=== PATIENT | female | born 1995 | race Caucasian/White ===

== ENCOUNTER 2023-07-12 20:17 | Outpatient (REF) | payer OTHER, SELFPAY ==
[2023-07-18 13:11] LABS: Age Gdln ACOG Testing Note (.); IGP, rfx Aptima HPV ASCU Note (.)
== END 2023-07-12 20:18 | disposition home or self-care (01) ==
LOC: LAB 20:17
PROVIDERS: Visit Provider Obstetrics & Gynecology
DX: Z01.419 Encounter for gynecological examination (general) (routine) without abnormal findings (principal)
CPT/HCPCS: G0145

== ENCOUNTER 2024-07-22 21:39 | Outpatient (REF) | payer MEDICAID, SELFPAY ==
--- OUTSIDE RECORDS SUMMARY | 2024-07-22 21:43 | XMS_ITS | CCD ---
Author Organization [facility] Care Team Providers Care Office Machines Wirer Name Role Phone ODILIA, DR LUCY Padilla Consulting Unavailable MISC, DR CASANOVA Primary Care Unavailable CHAVA ., DR METCALF Attending Unavailable CHAVA ., DR METCALF Admitting Unavailable CHAVA ., DR METCALF Consulting Unavailable MISC, DR CASANOVA Primary Care Unavailable CHAVA ., DR METCALF Admitting Unavailable CHAVA ., DR METCALF Consulting Unavailable CHAVA ., DR METCALF Attending Unavailable DIXON LARSEN Attending Unavailable DAVID MURRAY Primary Care Unavailable LEANNA LOGAN Attending Unavailable NO, PHYSICIAN Primary Care Unavailable NINOSKA DONALDSON Attending Unavailab le Allergies Allergy Classification Reported Allergen(s) Allergy Type Date of Onset Reaction(s) Facility (2 sources) Cephalexin; Translations: [CEPHALEXIN] Drug Allergy 04-07-2023 [facility] Repository Problems Active Problems Problem Classification Problem Date Documented Date Episodic/Chronic Headache; including migraine (2 sources) Headache; including migraine; Translations: [Headache, unspecified] Onset: 01-22-2024 Immunizations and screening for infectious disease (1 source) Encounter for screening for human papillomavirus (HPV); Translations: [ENC SCREENING HUMAN PAPILLOMAVIRUS] Onset: 07-12-2022 Episodic Other female genital disorders (4 sources) Unspecified condition associated with female genital organs and menstrual cycle; Translations: [UNS COND W/FE GENIT ORGN MENST CYCL] Onset: 07-26-2022 Episodic Other injuries and conditions due to external causes (2 sources) Unspecified injury of head, initial encounter; Translations: [Unspecified injury of head, initial encounter] Onset: 01-22-2024 Episodic Other screening for suspected conditions (not mental disorders or infectious disease) (4 sources) Encounter for screening for malignant neoplasm of cervix; Translations: [ENC SCREENING MALIG NEOPLASM CERV] Onset: 07-11-2022 Episodic Ovarian cyst (1 source) Other ovarian cyst, right side; Translations: [OTHER OVARIAN CYST RIGHT SIDE] Onset: 07-31-2022 Episodic Past or Other Problems Problem Classification Problem Date Documented Da te Episodic/Chronic Pleurisy; pneumothorax; pulmonary collapse (2 sources) Pleurisy; Translations: [Pleurisy] Onset: 04-07-2023 Episodic Results Test Name Value Interpretation Reference Range Facil ity BASIC METABOLIC PANELon 01-10 Anion gap [Moles/Vol] 12 mmol/L Normal 10-20 [facility] Comment on above: Order Comment: [facility] has implemented the eGFR calculation approach that does not have a coefficient for race that conforms to the NKF-ASN Task Force Recommendations. Performed By: #### [id number] #### [facility] [address] [place], [place] [address] Magdalena Yan M.D. [id number] Calcium [Mass/Vol] 8.3 mg/dL Low 8.4-10.2 [facility] Comment on above: Order Comment: [facility] has implemented the eGFR calculation approach that does not have a coefficient for race that conforms to the NKF-ASN Task Force Recommendations. Performed By: #### [id number] #### [facility] [address] [place], [place] [address] Magdalena Yan M.D. [id number] Chloride [Moles/Vol] 108 mmol/L Normal 98-108 [facility] Comment on above: Order Comment: [facility] has implemented the eGFR calculation approach that does not have a coefficient for race that conforms to the NKF-ASN Task Force Recommendations. Performed By: #### 4 [id number] #### [facility] [address] [place], [place] [address] Magdalena Yan M.D. [id number] Creatinine [Mass/Vol] 0.68 mg/dL Normal 0.40-1.10 [facility] Comment on above: Order Comment: [facility] has implemented the eGFR calculation approach that does not have a coefficient for race that conforms to the NKF-ASN Task Force Recommendations. Performed By: #### 4 [id number] #### [facility] [address] [place], [place] [address] Magdalena Yan M.D. [id number] EGFR 120 mL/min/1.73 m2 Normal >=60 [facility] Comment on above: Order Comment: [facility] has implemented the eGFR calculation approach that does not have a coefficient for race that conforms to the NKF-ASN Task Force Recommendations. Result Comment: Fauzia mated GFR was calculated using the 2020 CKD-EPI creatinine equation. Performed By: #### 4 [id number] #### [facility] [address] [place], [place] [address] Magdalena Yan M.D. [id number] Glucose [Mass/Vol] 86 mg/dL Normal 65-99 [facility] Comment on above: Order Comment: [facility] has implemented the eGFR calculation approach that does not have a coefficient for race that conforms to the NKF-ASN Task Force Recommendations. Performed By: #### 4 [id number] #### [facility] [address] [place], [place] [address] Magdalena Yan M.D. [id number] HCO3 (Bld) [Moles/Vol] 24 mmol/L Normal 21-32 [facility] Comment on above: Order Comment: [facility] has implemented the eGFR calculation approach that does not have a coefficient for race that conforms to the NKF-ASN Task Force Recommendations. Performed By: #### 4 [id number] #### [facility] [address] [place], [place] [address] Magdalena Yan M.D. [id number] Potassium [Moles/Vol] 3.8 mmol/L Normal 3.5-5.1 [facility] Comment on above: Order Comment: [facility] has implemented the eGFR calculation approach that does not have a coefficient for race that conforms to the NKF-ASN Task Force Recommendations. Performed By: #### 4 [id number] #### [facility] [address] [place], [place] [address] Magdalena Yan M.D. [id number] Sodium [Moles/Vol] 140 mmol/L Normal 135-145 [facility] Comment on above: Order Comment: [facility] has implemented the eGFR calculation approach that does not have a coefficient for race that conforms to the NKF-ASN Task Force Recommendations. Performed By: #### 4 [id number] #### [facility] [address] [place], [place] [address] Magdalena Yan M.D. [id number] Urea nitrogen [Mass/Vol] 7 mg/dL Low 8-25 [facility] Comment on above: Order Comment: [facility] has implemented the eGFR calculation approach that does not have a coefficient for race that conforms to the NKF-ASN Task Force Recommendations. Performed By: #### 4 [id number] #### [facility] [address] [place], [place] [address] Magdalena Yan M.D. [id number] Urea nitrogen/Creatinine [Mass ratio] 10.3 mg/mg Normal 10.0-20.0 [facility] Comment on above: Order Comment: [facility] has implemented the eGFR calculation approach that does not have a coefficient for race that conforms to the NKF-ASN Task Force Recommendations. Performed By: #### 4 [id number] #### [facility] [address] [place], [place] [address] Magdalena Yan M.D. [id number] CBC WITH AUTO DIFFERENTIALon 01-22-2024 AUTO NRBC 0.0 % Normal [facility] Comment on above: Performed By: #### L [id number] #### [facility] [address] [place], [place] [address] Magdalena Yan M.D. [id number] AUTO NRBC ABS COUNT 0.00 K/mcL Normal 0.00-0.00 [facility] Comment on above: Performed By: #### L [id number] #### [facility] [address] [place], [place] [address] Magdalena Yan M.D. [id number] BASOPHILS ABSOLUTE COUNT 0.01 K/mcL Normal 0.00-0.30 [facility] Comment on above: Performed By: #### L [id number] #### [facility] [address] [place], [place] [address] Magdalena Yan M.D. [id number] Basophils/100 WBC (Bld) 0.2 % Normal [facility] Comment on above: Performed By: #### L [id number] #### [facility] [address] [place] [address] Magdalena Yan M.D. [id number] Eosinophils (Bld) [#/Vol] 0.18 10*3/uL Normal 0.00-0.50 [facility] Comment on above: Performed By: #### L [id number] #### [facility] [address] [place] [address] Magdalena Yan M.D. [id number] Eosinophils/100 WBC (Bld) 3.4 % Normal [facility] Comment on above: Performed By: #### L [id number] #### [facility] [address] [place] [address] Magdalena Yan M.D. [id number] Erythrocyte distribution width (RBC) [Ratio] 12.3 % Normal 11.6-14.8 [facility] Comment on above: Performed By: #### L [id number] #### [facility] [address] [place] [address] Magdalena Yan M.D. [id number] Hematocrit (Bld) [Volume fraction] 34.8 % Low 36.0-46.0 [facility] Comment on above: Performed By: #### L [id number] #### [facility] [address] [place] [address] Magdalena Yan M.D. [id number] Hemoglobin (Bld) [Mass/Vol] 11.7 g/dL Low 12.0-16.0 [facility] Comment on above: Performed By: #### L [id number] #### [facility] [address] [place] [address] Magdalena Yan M.D. [id number] IG ABSOLUTE 0.01 K/mcL Normal 0.00-0.30 [facility] Comment on above: Performed By: #### L [id number] #### [facility] [address] [place] [address] Magdalena Yan M.D. [id number] IG PERCENT 0.20 % Normal [facility] Comment on above: Result Comment: The IG parameter is the percentage of metamyelocytes, myelocytes and promyelocytes. An immature granulocyte count (IG) of 1% or more suggests the possibility of infection, an IG count of 3% is very likely related to an infection. Performed By: #### L [id number] #### [facility] [address] [place] [address] Magdalena Yan M.D. [id number] Lymphocytes (Bld) [#/Vol] 2.30 10*3/uL Normal 0.90-4.00 [facility] Comment on above: Performed By: #### L [id number] #### [facility] [address] [place] [address] Magdalena Yan M.D. [id number] Lymphocytes/100 WBC (Bld) 43.6 % Normal [facility] Comment on above: Performed By: #### L [id number] #### [facility] [address] [place] [address] Magdalena Yan M.D. [id number] MCH (RBC) [Entitic mass] 33.5 pg Normal 26.0-34.0 [facility] Comment on above: Performed By: #### L [id number] #### [facility] [address] [place] [address] Magdalena Yan M.D. [id number] MCV (RBC) [Entitic vol] 99.7 fL Normal 80.0-100.0 [facility] Comment on above: Performed By: #### L [id number] #### [facility] [address] [place] [address] Magdalena Yan M.D. [id number] MEAN CORPUSCULAR HEMOGLOBIN CONC 33.6 g/dL Normal 31.0-37.0 [facility] Comment on above: Performed By: #### L [id number] #### [facility] [address] [place] [address] Magdalena Yan M.D. [id number] Monocytes (Bld) [#/Vol] 0.39 10*3/uL Normal 0.30-0.90 [facility] Comment on above: Performed By: #### L [id number] #### [facility] [address] [place], [place] [address] Magdalena Yan M.D. [id number] Monocytes/100 WBC (Bld) 7.4 % Normal [facility] Comment on above: Performed By: #### L [id number] #### [facility] [address] [place], [place] [address] Magdalena Yan M.D. [id number] NEUTROPHILS ABSOLUTE COUNT 2.38 K/mcL Normal 1.70-7.00 [facility] Comment on above: Performed By: #### L [id number] #### [facility] [address] [place] [address] Magdalena Yan M.D. [id number] Neutrophils/100 WBC (Bld) 45.2 % Normal [facility] Comment on above: Performed By: #### L [id number] #### [facility] [address] [place] [address] Magdalena Yan M.D. [id number] Platelet mean volume (Bld) [Entitic vol] 9.3 fL Low 9.4-12.4 [facility] Comment on above: Performed By: #### L [id number] #### [facility] [address] [place], [place] [address] Magdalena Yan M.D. [id number] Platelets (Bld) [#/Vol] 226 10*3/uL Normal 150-400 [facility] Comment on above: Performed By: #### L [id number] #### [facility] [address] [place] [address] Magdalena Yan M.D. [id number] RBC (Bld) [#/Vol] 3.49 10*6/uL Low 4.00-5.20 [facility] Comment on above: Performed By: #### L [id number] #### [facility] [address] [place], [place] [address] Magdalena Yan M.D. [id number] WBC (Bld) [#/Vol] 5.27 10*3/uL Normal 4.50-11.00 [facility] Comment on above: Performed By: #### L [id number] #### [facility] [address] [place] [address] Magdalena Yan M.D. [id number] CT HEAD OR BRAIN WITHOUT CON TRASTon 01-22-2024 CT HEAD OR BRAIN WITHOUT CONTRAST EXAMINATION: CT HEAD OR BRAIN WITHOUT CONTRAST HISTORY: ORDERING SYSTEM PROVIDED HISTORY: Patient was hit with a softball in the right parietal region yesterday evening, reports worsening headache, positional dizziness, photosensitivity, TECHNOLOGIST PROVIDED HISTORY: Illness/Other Reason for exam: Patient was hit with a softball in the right parietal region yesterday evening, reports worsening headache, positional dizziness, photosensitivity Encounter Type: Initial Additional signs and symptoms: Patient was hit with a softball in the right parietal region yesterday evening, reports worsening headache, positional dizziness, photosensitivity ORDERING SYSTEM PROVIDED DIAGNOSIS CODES: COMPARISON: None TECHNIQUE: CT examination of the head without IV contrast. Dose reduction techniques were achieved by using automated exposure control and/or adjustment of mA and/or kV according to patient size and/or use of iterative reconstruction technique. FINDINGS: No mass, acute intracranial hemorrhage or any abnormal extra-axial fluid collection is seen. There is no mass effect or shift of midline structures. Piper-white matter distinction is preserved. No infarct or hydrocephalus is evident. No skull fracture is seen. The imaged paranasal sinuses, mastoid air cells and middle ear cavities are clear. IMPRESSION: Negative for acute intracranial process. Workstation ID: [id number] Dictated by: IVOLETA RUBI on MonJan 22, 2024 11:07:42 AM EDT Transcribed by: VIOLETA RUBI on MonJan 22, 2024 11:07:42 AM EDT Finalized by: VIOLETA RUBI on MonJan 22, 2024 11:07:42 AM EDT Normal [facility] Comment on above: Order Comment: Injur y/Trauma or Illness?:Illness/Other How long have you had these symptoms (acute/chronic)?:Acute Reason for exam?:Patient was hit with a softball in the right parietal region yesterday evening, reports worsening headache, positional dizziness, photosensitivity Type of Exam?:Initial Additional signs and symptoms?:Patient was hit with a softball in the right parietal region yesterday evening, reports worsening headache, positional dizziness, photosensitivity ED Prov Noteon 01-22-2024 ED Prov Note [place] [phone] NAME: Mathieu Pike AGE: 28 y.o. PCP: Cat, Physician CSN: [id number] Chief Complaint: Dizziness and Headache CLINICAL IMPRESSION: 1. Closed head injury, initial encounter 2. Nonintractable headache, unspecified chronicity pattern, unspecified headache type EMERGENCY DEPARTMENT COURSE: Mathieu Pike is a 28 y.o. female with a pertinent PMHx of hysterectomy, who presents to [facility] for the evaluation of a headache after head injury sustained yesterday. Patient reports that she was playing softball yesterday and she was running to [employer]. She reports that the left center was throwing a softball, she was approximately 75 feet away from the person throwing a softball, when she was hit in the right parietal region of the head. She was not wearing a helmet. She states that she did not lose consciousness. She reports that it did not hurt her very badly when it first happened, but she states that as the evening went on, the headache progressively worsened. She states that she tried taking 600 mg of ibuprofen last night, which did not help her. She reports that she feels light sensitivity this morning. She states that she feels dizzy, with just certain positions. She states that when she bent over to pick up man her son's close off the floor and stood back up she felt dizzy as well as when she tried to get out of bed. She does not report consistent or persistent dizziness. She has not taken any medications yet today. She did not fall and hit the ground yesterday when this happened. She denies any neck or back pain. There is no numbness or tingling or weakness to arms or legs. No abdominal pain, nausea or vomiting. No chest pains or shortness of breath. She denies any visual disturbances. No nasal congestion, cough, fever or chills. She denies any leg pain or swelling. No other complaints or concerns. CBC with differential shows white blood cell count normal at 5.27, RBCs decreased at 3.49, hemoglobin of 11.7 and hematocrit of 34.8 BMP shows BUN of 7, calcium of 8.3, otherwise negative CT head of brain without contrast was performed and revealed Negative for acute intracranial process. she received 1 L normal saline bolus, Benadryl 25 mg IV, Reglan 10 mg IV as well as Toradol 15 mg IV for symptom management and reported significant improvement in her headache, even after just the administration of reglan and benadryl. I discussed patient's case with attending physician Dr. Donaldson, who agrees that at this time, patient appears to be stable and appropriate for discharge with outpatient follow-up to primary care for recheck and reevaluation. Patient does not have any evidence of intracranial abnormality. No evidence of intracranial bleeding, no focal neurodeficit. She reports improvement after administration of migraine cocktail. We recommend close outpatient follow-up to primary care for recheck and reevaluation in the next 1 to 2 days, or sooner if new, worsening concerning signs or symptoms arise. Tylenol and/or ibuprofen for residual headache. Strict return precautions to the emergency department which include, but are not limited to, any new, worsening concerning signs or symptoms which include severe headache, neck pain or stiffness, difficulty talking or walking, numbness or tingling weakness arms or legs, facial asymmetry, intractable nausea vomiting, abdominal pain, chest pain, difficulty breathing, etc. Drink lots of water, maintain good hydration and nutrition. Follow-up with [facility] for recheck and reevaluation in the next 1 to 2 days, or sooner if new, worse or concerning signs or symptoms arise. Patient is in agreement expresses understanding. Patient currently is no further questions or concerns. Patient be happily discharged home. Vital signs are hemodynamically stable. Blood pressure is 139/84. Afebrile 97.9. Heart rate of 80. Breathing even, unlabored respirations on room air 99%. Nontoxic in appearance. Patient presentation, physical exam findings, workup and course were reviewed with attending physician Dr. Donaldson. They were present for consultation and assistance throughout ED course. Medications Ordered/Given During ED Visit Medications sodium chloride (PF) (NS) flush 5 mL (has no administration in time range) And sodium chloride 0.9% (NS) (has no administration in time range) sodium chloride 0.9% (NS) bolus 1,000 mL (1,000 mL Intravenous New Bag 01/22/24 1101) ketorolac (TORADOL) injection 15 mg (has no administration in time range) metoclopramide (REGLAN) injection 10 mg (10 mg Intravenous Given 01/22/24 1101) diphenhydrAMINE (BENADRYL) injection 25 mg (25 mg Intravenous Given 01/22/241100) MEDICAL DECISION MAKING: Patient's case presentation, physical exam findings and diagnostic laboratory and imaging results were discus (more content not included)... Normal [facility] XR CHEST AP/PA AND LATon XR CHEST AP/PA AND LAT EXAMINATION: XR CHEST AP/PA AND LAT 04/07/2023 11:00 PM HISTORY: ORDERING SYSTEM PROVIDED HISTORY: Chest pain, TECHNOLOGIST PROVIDED HISTORY: Illness/Other Reason for Exam: Patient states I woke up this morning and it hurts to take a deep breath on my left side. It is also going around to my back. It hurts worse when I move a certain way. Cancer History: Unk Surgery, Radiation History: Unk Encounter Type: Initial Additional Signs and Symptoms: N/A ORDERING SYSTEM PROVIDED DIAGNOSIS CODES: COMPARISON: None. FINDINGS: Two views of the chest were obtained. Bilateral nipple piercings are noted. The cardiac silhouette is normal in size. The lungs are clear. There is no significant pneumothorax or pleural effusion. No acute osseous abnormality is seen. IMPRESSION: 1. No acute cardiopulmonary abnormality. [facility] Workstation ID: [id number] Dictated by: TAJ ALBRIGHT on Sat Apr 08, 2023 1:24:49 AM EDT Transcribed by: ELIEZER CURRY on Sat Apr 08, 2023 1:28:37 AM EDT Finalized by: TAJ ALBRIGHT on Sat Apr 08, 2023 1:56:43 AM EDT Normal [facility] Comment on above: Order Comment: Injur y/Trauma or Illness?:Illness/Other How long have you had these symptoms (acute/chronic)?:Acute Reason for exam?:Patient states I woke up this morning and it hurts to take a deep breath on my left side. It is also going around to my back. It hurts worse when I move a certain way. ?? History of cancer?:unk Surgeries, chemotherapy, or radiation?:unk Type of Exam?:Initial Additional signs and symptoms?:n/a US PELVIS AND TRANSVAGon US PELVIS AND TRANSVAG EXAMINATION: US PELVIS AND TRANSVAG HISTORY: Disorder of female genital organs COMPARISON: No relevant comparison available. FINDINGS: The uterus is surgically absent The right ovary measures 4.3 x 3.3 x 2.6 cm. Area of anechoic echogenicity measuring 2.4 x 1.8 x 1.6 cm, simple cyst. Normal color and Doppler flow The left ovary is normal in appearance measuring 3.6 x 2.6 x 2.3 cm. Normal color and Doppler flow. Normal follicles No ascites IMPRESSION: 2.4 cm right ovarian simple cyst Electronically authenticated by: LUCY HARTLEY Date: 2022-07-26 14:45 Normal [facility] PAP ACOG PANEL 2: 21 to 29on 07-18-2022 . . Normal [facility] Comment on above: Performed By: #### [id number] #### [facility] [address] [place] [address] Dr. Andrew Dow Age Gdln ACOG Testing 19- Normal [facility] Comment on above: Performed By: #### [id number] #### [facility] [address] [place] [address] Dr. Andrew Dow DIAGNOSIS: Comment Normal [facility] Comment on above: Result Comment: NEGA TIVE FOR INTRAEPITHELIAL LESION OR MALIGNANCY. PREDOMINANCE OF COCCOBACILLI CONSISTENT WITH SHIFT IN VAGINAL MADDY IS PRESENT. THIS SPECIMEN WAS RESCREENED PART OF OUR FAMILY RESOURCE MANAGEMENT SPECIALIST PROGRAM. Performed By: #### [id number] #### [facility] [address] [place] [address] Dr. Andrew Dow Methodology: Comment Normal [facility] Comment on above: Result Comment: This liquid based ThinPrep(R) pap test was screened with the use of an image guided system. Performed By: #### [id number] #### [facility] [address] [place] [address] Dr. Andrew Dow Note: Comment Normal [facility] Comment on above: Result Comment: The Pap smear is a screening test designed to aid in the detection of premalignant and malignant conditions of the uterine cervix. It is not a diagnostic procedure and should not be used as the sole means of detecting cervical cancer. Both false-positive and false-negative reports do occur. . Performed By: #### [id number] #### [facility] [address] [place] [address] [address] Andrew Dow Performed by: Comment Normal [facility] Comment on above: Result Comment: Dimitrios Garcia, Repair Tech (ASCP) Performed By: #### [id number] #### [facility] [address] [place] [address] [address] Andrew Dow QC reviewed by: Comment Normal [facility] Comment on above: Result Comment: Patricia Llamas, Repair Tech (ASCP) Performed By: #### [id number] #### [facility] [address] [place] [address] Dr. Andrew Dow Reflex Criteria: Comment Normal [facility] Comment on above: Result Comment: The HPV DNA reflex criteria were not met with this specimen result therefore, no HPV testing was performed. . Performed By: #### [id number] #### [facility] [address] [address] [address] Andrew Dow Specimen adequacy: Comment Normal [facility] Comment on above: Result Comment: Sati sfactory for evaluation. No endocervical component is identified. Performed By: #### [id number] #### [facility] [address] [place] [address] Dr. Andrew Dow Screenson 08-09-2021 Screens [id number] 0CD:[id number] Normal [facility] Coding Summary.on 07-06-2021 Coding Summary. CD:[id number] Gh 0bWw+PGhlYWQ+KZ1PLCUsH 52fkCStlU6SH0yVQS1IYSA HIDRWER8CZH7bnQI7TCeeL 2VybiAv PuzjkKNkPC56FYa1HRB1yU ppAUeluK7uwDHzW5g7AkHe YD56kK22NWcoNBQlJeG1Ot ZpbjsgbWFy K0nySqGkbIScFdx+PHRhYm xlIHdpZHRoPScxMDAlJyBz rThaEK8gCc3aHVKaJSWlnI xhcHNlOiBj c7lgXMEkNRxjBV1vjMfyV5 PgwXH9VIDgt2n1Jb89qQI+ EIPcARL8jLsiGXbty639Gp Sgb7yoXCA8 wBPyHMeqLNX0U41lz0G8KA QsILMqRQL5kJE8sB8juSer maabL3TjoSXdJxU7UPP6fM JwoA6uiMjb spuskO3mXtl+A93QGO1FGI AQDO0DGls5U5QwGbepsGL+ DV84RKMoRD93eDQmxTRqk4 uvaUx5AwCq EGWsGJE4wNmmBNdxx0SnTF FaP78mfIVxe0T4LEBwcOri tXHmUcQyvAQ5aK2gDWfjuv jcv9wmisdi Dlxur5wyjo85dP10N44gCA ntVQHdXCO3MXFvYKYmvWmk gy9alN5vLu2+KQmyu4ycq9 eraEx1PrGt ZFFauqWthOrbMNW5b0TmCr 20K2CbhYryo0SePzo0nu81 yTEhb8F6kEX2WGgoXGTsnA 8sEMcrVvV1 CACuRwQphJ14cOOgYRohNd 0ciWywwAxsEB3dTHLwsxvr QPAjlQ1kPFSjsPIdwLawRO 4wNTBpbjtm f344ZwMmHQN7NPVraYHjA6 PtuB9cHtBcBLKpECQcD7Kh eBDrEJuwD917XOfdSkV2SS YwscWnF9Cg CBMfrWwbWyK5r5N1Uf6Gp1 UrnhpaSWV4ZBolYTAlRnV1 YzPiYrE7R4XgRgf1DBZemS dvEG9wT4Eh AGLezwvhbgbbpXG2JVFhIK IvqP14rMJkLGsrRz8fp3R1 p651JEJiOEIlqF39Vj0odH ogMTBwdCBU nA9pzwdzj7lhjvvsArPwIN YpIJq5IBe6FSFbiMnvXgNb YMQ1IcA8LHW6tCRmbR6drM rhnvbriI2o Oyc+W28kdH8mEPF4VPZ9yp crNZKkvsItEZ02SI99Y4Cl PjwvdGFibGU+PGRpdiBzdH hmHW0kEoBa k6ifr8CiUMchF0ToRYDzPF zlXyg9REQhELE8vBT0gL1t IQXoBWxyy7H8qZH8O5Xaeq Jnun0op6eh LYJvNKbvI76xxPUgq6T9ZV NmmGU9NXQmhGeeHeLqoC05 Oyc+WTJoeAmjt2XhDmbjb9 wbi9dkqJf0 PeLdVHCpzzZbqKmhRHN5w0 RaPl96I92lGCgeCWMjWGRn UWIbXHRmuVohaz2paU9gJz 8+PGNvbCB3 kDC6yO7lIRLbFeK6XAjbS8 44NlGsoPHxBszed4tga7ow uGe7KgJiRXHzvrJecJsnWH X8j9IsWd87 G36bXUmfECQjMNHpJKElWK LveIlooj5joY3gTa3+PC9j z8jjfs68dJ94rRC+PHRkIH G1tNtrGYvs RYWycO6wACzmLlX1FPKgXm OuhN10wCDmNZrzFm9vcEmd bIntJF2wBLVaosdyo986Ss Osy5phENXa zRRrPJbmJMG0W43oj3X7MG HiFMVdNUN1yEX2wK2znCos bjogbGVmdDsgdmVydGljYW frIMtmX103 IHRvcDsnPlBhdGllbnQgTm PhUBl5V5NtYpq1JKOjyOda UN0yzINfQUnhBv9txCsfbE uqZF6nNMFw wvlze441AeOqv1scWCNxdH CdZMzbHMR0O30ut5X0RAWz KKIwCYZ7cVU8bX4zyLqpch ogbGVmdDsg jaTwkOabGLfwYJhrO342BG RvcDsnPkJpcnRoIERhdGU6 AV31FU53dZHqf1E9wKW8K5 BhZGRpbmct rtsfrKN5YDZqFFMvdX43Xt 5guPcwAu4zUELvYPS2FMVn jPCzD0NyaB3dIqNaNSAyWF GmJ6DtuJZq NByqG775GLqvWtC6VXYstu SrK6IzSDEajJhcDvN5n7V8 Qc2IV0R8IV72NT88bDXrd5 V5bXY0J9Ov NFBaligihayvsJM7QORpFC PpaZ39Rq8goKaySi4eJVJg DIL9CDFcxATuZ9ScpA1rXs AjMDAwMDAw A3EqfPMzYZybS772NVzpSh G1IADuciShD5UtDVGxnPua AsF7l4C0Nz9AXQy5NL70CX 73xENrm1S4 nIU3L5FxRACceqtmnhlkpY Z6QCIoRPNgeV88Hv8hcBcj Vv0kNVQsOMS1TTGhvXDxC1 TgcO1hGmOn XQPuLQXpN1QwaUJkIOvzH6 53SWfhLqJ9ZGCbvbXlB8Sp XMCgzXduJtW7t0H8Tl1QRM XxOY06DLZ9 mUS2HY68EB29X0IkVkqcpY FibGU+PHRhYmxlIHdpZHRo SZknBLErIxJuyOomKZ0fYo 9yZGVyLWNv sXazgFWsSqCmf4oxLVZwET njOD5ljUgcZ4DiiBJ6QZUj g5f9Tg76E23cS3NdaHB+PG ZlzKO9cJG9 iZ9uEbOdBzZ8ENvtR226Pa RpbRXjDqtjw7yro5uqtEe0 GzE5SZXydrYnrBmbVSG8f2 CkAw35Y70h IHdpZHRoPSIxNSUiIHZhbG twrq5npG2eQw5+PGNvbCB3 kOO4iO3uCsGaUoK5HNgmN8 49InRvcCIv Dmqpe9njo3gudGc1DvDhML JrcqJuwUjaZCH3i9YtQr96 U2MlyWycn3TvXwf0in07oQ Iml8S6hJU4 E1SwRKAveofmrWLemHxzBO 7zBXPofmsmIJBmtN6iEOSa F5c8YqUyKgG9VJdmX5Mxkr M0QLBbiZUg HTmtSKV8A20el2C5TJPeXM KyZBM9vSH5cQ0uyWqefctt bGVmdDsgdmVydGljYWwtYW guR029OKLw iKvcZNZgmU2bDNFkiKCsfO ujFO3nJNFwwggrPyGGIVsD OIeyQa9GLyBXScDUVA33NP 05fDHot7A4 fKT2D0DyDDRikqvdzxccrB G3LABhKRQktM60kOLsSSbk Ko2pf6B0t637QPMlGDPzqD 81Ko5mzBpc YADjwTGCmI1ugsjmd7zxrx yjHxJzMKNgFVl7UBz2VPYj sRerWzOpIXV4UgO1XWE9oE AqlV1wgOrg vzbavA1rAjv+MDMvMTMvMT i5JBhsnPP+WVQwRQI3lHem QXkjAUSwrI4qWYMuS2u3Eo FoIoM6PPcv S2XyPSRvaswoZk37jL7jHt McPuL6NPdbO0EnfrZ1GLJt zOBcZQugJEP9W53do7D8YX MwMDAwMDA7 gMD0tS0wrYlxvjnmmFVlsV ukktRslAavVNklQQqqC011 XHErfAfpMpI5YYspVFZsHS 85FC72uYVy l6I7zES1B3NrSWYklrthfl hyeBH5GLZzDAExyQ75yBXh GCzhBq5cn9U9d563MBLnMC IgyW97Ot8h yGyaIGZioSXFgS9qkeqjd8 kiaimwGnWvSKGbVVi0XCa7 BIHphWmiWhHdTNQ2MmN3XE N2tSVnsT7u jYanftcmoR3gHgp+RmVtYW mlAJ56VM86eXXgo9L3fBY9 O5NmLSRltaybcsjaaFL8WX PsQJFsnL99 mNQrWPshPs7cg7S9b501NV TcBBYehP31Im0nqBdkJWCq aCIHfG4febrpq2qlrehySc AwMDAwMDt0 RIc5OFHevZuzWjWnGJO0Ao N2IPS0lGJbnU3gvExsxdzs wH5hSqk+EORwLTWeh1Wxq6 LwQY61QR71 J2GaGccbmGBbhLI+PHRhYm xlIHdpZHRoPScxMDAlJyBz vKpoMJ4bOc6tDANuZQOrfW xhcHNlOiBj f5ylUZShSDixEC6zrAyhF5 KmkEN4LWSum0l4Xg60Z99d V2HlkUU+IGBxrWY6aBH2tA 1iBuQgJsK6 HBusN538LkDtpNSkIibvc1 rxa8bwcXn4ToXzWJNkbwSk zLwvJHA2n3EiFw91W55ePI dpZHRoPSIy KAYaHBPtfItuic1ilV8iFv 8+NSCbgNK2uKC4lK3tBkCx PrG2UBqfN949SzYpdBVdBc suP06bV4Ng dXA+IVDqUqv7UOMcyDitRB 5hrXXpNJmoWj2qANI4TcIi VwBqLUwlW8GuPLEpolzygc csgDX8LUHv YQArcA47Uo6qrKaxPm2yPG FpYPE8IXJfbKLyE1YnjO4e FfFzESRqDNWyP8KjaCUtXH itU162UKec IrY3XQTnheEwD6UkKERjiX egGaT9p5L8Ri3LgWwlqMHb CL3qAzYlODz4V5UcVvv5VM KunFgtWZ7r lKNaXCcwUh5rgPookNwmFY 7rDLBlrjnvo745GdXuy7ey JZKseBJfTPguSJC3C40ev1 G3TAXnVQGs NVU5oVF1eX4ymJxhnpkmqZ VmdDsgdmVydGljYWwtYWxp C107SMAdtWhbPiBPOiz0G6 RkNqw2GBKz pCvySS4qcFCnSOrlEh4wrF fzyFteAB8lJSVoyebky237 LvDsp7ibWQQciEGrJClaFB E4J94yv0D1 PMVuIBGdYFW8kOW9uB1goV lnbjogbGVmdDsgdmVydGlj BMdtNUqwR642QKKlfZjsBz 0LPcs7V3Yh Jov4QBTolRcoKB4edHNwSH qpKf9laYjtnSoxSA3cURTs npuup366ZpPam5gzETDtaH QgVGltZXM7 N06cu0A6XNZpCXJeLVP5bX Q8kY9igBoqljxktCEzvTch wvQnyGhdSCavEQdnN433YB RvcDsnPlBh eWVyOjwvdGQ+OA19nj41B3 RdWcllOen0KAYoWJL5cHO5 lT0qYHNfQPfzz1A4cJD7M8 IqkpWcyg4x b2xs (more content not included)... Normal [facility] C Urineon 06-24-2021 Bacteria identified Cx Nom (U) Microbiology PROCEDURE: Urine Culture [R1] SOURCE: U CleanCatch BODY SITE: COLLECTED DATE/TIME: 06/22/2021 10:08 EST RECEIVED DATE/TIME: 06/22/2021 17:40 EST START DATE/TIME: 06/22/2021 17:40 EST FREE TEXT SOURCE: MIMI HALL, Briseida LE CNP, Briseida Mcintosh FINAL REPORTS Final Report [] Verified Date/Time: 06/24/2021 08:51 EST >100,000 cfu/ml Klebsiella pneumoniae SUSCEPTIBILITY RESULTS LEGEND: S=Susceptible, N/R=Not Reported, Blank=Data not available, or drug not advisable or tested, I=Intermediate, ESBL=Extended spectrum beta-lactamase, R=Resistant, TFG=Thymidine-dependen t strain, SAKINA=Beta-lactamase positive, KRYSTINA=mcg/m;(mg/L), S*=Predicted susceptible interp, R*=Predicted resistant interp Klepne Antibiotic KRYSTINA Dilutn KRYSTINA Interp Amikacin <=16 S Ampicillin >16 R Ampicillin/ <=8/4 S Sulbactam Aztreonam <=4 S Cefazolin <=2 S Cefepime <=2 S Cefoxitin <=8 S Ceftazidime <=1 S Ceftazidime/ <=8 S Avibactam Ceftriaxone <=1 S Ciprofloxacin <=1 S Ertapenem <=0.5 S Gentamicin <=4 S Levofloxacin <=2 S Meropenem <=1 S Nitrofurantoin 64 I Piperacillin/ <=16 S Tazobactam Tetracycline <=4 S Tigecycline <=2 S Tobramycin <=4 S Trimethoprim/ <=2/38 S Sulfa Performing Locations R1: This test was performed at: [facility], [address] [place] [address], [phone] , [place], Normal [facility] Comment on above: Performed By: #### [id number] #### [facility] [address] [place] [id number] Family Medicine Office/Clini c Noteon 06-23-2021 Family Medicine Office/Clinic Note Chief Complaint Here for possible yeast infection or UTI. Having cottage cheese d/c and itch. Now having burning with urination. History of Present Illness Here today for vaginal complaints. Symptoms: thick and white discharge, vaginal itching. Duration: 3 days Abdominal/pelvic pain: No Nausea/Vomiting: No Urinary complaints: Yes, dysuria, throbbing pain after urination. Bowel complaints: No /STI concerns: No LMP: Patient had a hysterectomy in 07/2020. Ms. Pike notes trying OTC 1-day yeast infection treatment, but did not find improvement in her symptoms. She denies recently taking antibiotics and confirms that she still smokes cigarettes. Review of Systems PHQ Score Initial Depression Screen Score: 0 Review of Systems: See HPI. Constitutional: Denies fever or chills, anorexia. Gastrointestinal: Denies bloody or black bowel movements, change in bowel habits. See HPI. Genitourinary: See HPI. Physical Exam Vitals & Measurements T: 36.5 ?C(Tympanic) HR: 76(Peripheral) RR: 12 BP: 104/62 HT: 158.0 cm HT: 158 cm WT: 56.6 kg WT: 56.6 kg BMI: 22.67 General: Well developed, well nourished, female adult in no acute distress sitting upright on exam table. Head: Normocephalic/atraumat ic. Eyes: No conjunctival irritation, no icterus. Ears: Grossly normal hearing. Nose: No discharge. Mouth: MMM, talkative. Neck: Supple. Chest: No distress. Abdomen: Abdomen is soft and nontender. No CVA tenderness, bilaterally. Musculoskeletal: Steady gait. Skin: Skin is fairly tanned, warm and dry. Mental Status: Alert and cooperative. Pleasant, appreciative. Assessment/Plan 1. Acute cystitis without hematuria (N30.00: Acute cystitis without hematuria) Results of urine sample today in office reviewed with patient. Instructed patient to wipe from front to back, urinate after intercourse and avoid excessive soaking in bathtub. Encouraged cotton underwear. Complete entire duration of antibiotic as directed -Macrobid prescribed. Encouraged increase in oral fluids. Urine sample sent for culture. Reviewed signs and symptoms of pyelonephritis and when to seek emergency department evaluation. To notify office if new or worsening symptoms develop or no improvement is found. Patient verbalizes understanding and agrees with plan. 2. Vaginitis (N76.0: Acute vaginitis) Reported symptoms consistent with candidal vaginitis, Diflucan prescribed, may repeat in 1 week if no improvement noted. Did discuss with patient repeat treatment may be warranted given use of oral antibiotic. 3. Cigarette smoker (F17.210: Nicotine dependence, cigarettes, uncomplicated) Smoking cessation strongly encouraged. Cigarette smoking harms nearly every organ of the body, causes many diseases, and reduces the health of smokers in general. Quitting smoking lowers your risk for smoking-related diseases and can add years to your life. 2-967-NMZG-NOW or www.smokefree.gov provide access to helpful resources including free telephone support. If you decide prescription treatment may help you quit, please contact your provider. 4. BMI 22.0-22.9, adult (Z68.22: Body mass index [BMI] 22.0-22.9, adult) Continue to maintain a healthy weight. Documentation services were performed after patient or guardian consented to allow [facility] to record this visit. CAROL environmental protection specialist and provider reviewed before signing. CAROL: Evelyn Singh Entered into [facility] by: Opal Fall. Follow-up With When Contact Information David OLSON [address] [place] [address]- Additional Instructions: Keep routine follow-up appointments with PCP as scheduled. Briseida LE CNP Only if needed [address] [place], [place] [id number]- Additional Instructions: Patient Education Urinary Tract Infection, Adult, Howf-ik-Jxgt Problem List/Past Medical History Ongoing BMI 22.0-22.9, adult Cigarette smoker Rh negative Seasonal allergic rhinitis Historical Procedure/Surgical History Bilateral tubal ligation, delivery, Endometrial ablation, Partial hysterectomy. Medications Diflucan 150 mg Tab, 150 mg= 1 tab(s), Oral, Once, 1 refills Macrobid 100 mg Cap, 100 mg= 1 cap(s), Oral, BID Allergies cephalexin (Rash) Social History Alcohol - Denies Alcohol Use, 12/07/2012 Employment/School Employed, Work/School description: [employer] Activity level: Desk/Office. Highest education level: High school., 11/22/2019 Exercise - Does not exercise, 12/07/2012 Home/Environment Lives with Children, Spouse. Living situation: Home/Independent. Alcohol abuse in household: No. Substance abuse in household: No. Smoker in household: Yes. Injuries/Abuse/Neglect in household: No. Feels unsafe at home: No. Safe place to go: Yes. Agency(s)/Others notified: No. Family/Friends available for support: Yes. Concern for family members at home: No. Major illness in household: No. Financial torito (more content not included)... Normal [facility] Comment on above: Result Comment: Elec tronically Signed By: Briseida LE CNP\willie\Date and Time Signed: 06/23/21 07:26 EST Patient Educationon 06-22-19 Patient Education Obstetrics and Gynecology Urinary Tract Infection, Adult A urinary tract infection (UTI) is an infection of any part of the urinary tract. The urinary tract includes: ? The kidneys. ? The ureters. ? The bladder. ? The urethra. These organs make, store, and get rid of pee (urine) in the body. What are the causes? This is caused by germs (bacteria) in your genital area. These germs grow and cause swelling (inflammation) of your urinary tract. What increases the risk? You are more likely to develop this condition if: ? You have a small, thin tube (catheter) to drain pee. ? You cannot control when you pee or poop (incontinence). ? You are female, and: ? You use these methods to prevent : ? A medicine that kills sperm (spermicide). ? A device that blocks sperm (diaphragm). ? You have low levels of a female hormone (estrogen). ? You are . ? You have genes that add to your risk. ? You are sexually active. ? You take antibiotic medicines. ? You have trouble peeing because of: ? A prostate that is bigger than normal, if you are male. ? A blockage in the part of your body that drains pee from the bladder (urethra). ? A kidney stone. ? A nerve condition that affects your bladder (neurogenic bladder). ? Not getting enough to drink. ? Not peeing often enough. ? You have other conditions, such as: ? Diabetes. ? A weak disease-fighting system (immune system). ? Sickle cell disease. ? Gout. ? Injury of the spine. What are the signs or symptoms? Symptoms of this condition include: ? Needing to pee right away (urgently). ? Peeing often. ? Peeing small amounts often. ? Pain or burning when peeing. ? Blood in the pee. ? Pee that smells bad or not like normal. ? Trouble peeing. ? Pee that is cloudy. ? Fluid coming from the vagina, if you are female. ? Pain in the belly or lower back. Other symptoms include: ? Throwing up (vomiting). ? No urge to eat. ? Feeling mixed up (confused). ? Being tired and grouchy (irritable). ? A fever. ? Watery poop (diarrhea). How is this treated? This condition may be treated with: ? Antibiotic medicine. ? Other medicines. ? Drinking enough water. Follow these instructions at home: Medicines ? Take pwhn-twn-rujlstw and prescription medicines only as told by your doctor. ? If you were prescribed an antibiotic medicine, take it as told by your doctor. Do not stop taking it even if you start to feel better. General instructions ? Make sure you: ? Pee until your bladder is empty. ? Do not hold pee for a long time. ? Empty your bladder after sex. ? Wipe from front to back after pooping if you are a female. Use each tissue one time when you wipe. ? Drink enough fluid to keep your pee pale yellow. ? Keep all follow-up visits as told by your doctor. This is important. Contact a doctor if: ? You do not get better after 1?2 days. ? Your symptoms go away and then come back. Get help right away if: ? You have very bad back pain. ? You have very bad pain in your lower belly. ? You have a fever. ? You are sick to your stomach (nauseous). ? You are throwing up. Summary ? A urinary tract infection (UTI) is an infection of any part of the urinary tract. ? This condition is caused by germs in your genital area. ? There are many risk factors for a UTI. These include having a small, thin tube to drain pee and not being able to control when you pee or poop. ? Treatment includes antibiotic medicines for germs. ? Drink enough fluid to keep your pee pale yellow. This information is not intended to replace advice given to you by your health care provider. Make sure you discuss any questions you have with your health care provider. Document Released: 11/14/2008 Document Revised: 05/16/2019 Document Reviewed: 12/06/2018 [employer] Patient Education ? 2020 [employer] Normal [facility] Ambulatory Clinical Summaryo n 09-28-2020 Ambulatory Clinical Summary {[id number] Normal [facility] Family Medicine Office/Clini c Noteon 09-28-2020 Family Medicine Office/Clinic Note Chief Complaint C/o allergy issues-sneezing, itchy throat, itchy ears. Would like an allergy shot History of Present Illness Here today for severe allergies requesting a Kenalog injection. Allergies bad for a couple weeks. Kenalog worked last year Using Singulair currently. Itchy ears and throat, sneezing. Eyes irritated at work form the dust or when around someone mowing. Review of Systems ROS Constitutional: denies fever and chills ENT: sneezing Respiratory: no tightness in the lungs Physical Exam Vitals & Measurements T: 36.3 ?C (Tympanic) HR: 74(Peripheral) RR: 16 BP: 128/74 SpO2: 98% HT: 158.0 cm HT: 158 cm WT: 52.7 kg WT: 52.7 kg BMI: 21.11 General: Well hydrated, no apparent distress Head: Normocephalic atraumatic Eyes: EOMI, sclera clear Ears: Bilateral tympanic membranes pearly piper with good cone of light Nose: pale and swollen turbinates Mouth: Mucous membranes moist. Normal oropharynx, posterior pharynx without lesion or exudate. Tongue normal. Neck: No cervical lymphadenopathy Lungs: Lungs clear to auscultation Cardio: Regular rate and rhythm with no murmur Assessment/Plan 1. Seasonal allergic rhinitis (J30.2: Other seasonal allergic rhinitis) Condition: Evaluated Status: Worsening Cause/Complications: season change Plan: Treat with Kenalog 60mg IM. Expected course and recovery discussed. Observe condition, call the office if worsening or if new signs or symptoms appear. Ordered: Office Visit Level 3 Est [id number] Follow-up With When Contact Information David OLSON Only if needed [address] [place] [phone]- Additional Instructions: Patient Education Allergic Rhinitis, Adult Problem List/Past Medical History Ongoing BMI 21.0-21.9, adult Current smoker Rh negative Seasonal allergic rhinitis Historical Procedure/Surgical History Bilateral tubal ligation, delivery, Endometrial ablation, Partial hysterectomy. Medications montelukast 10 mg Tab, 10 mg= 1 tab(s), Oral, Daily, 2 refills Allergies cephalexin (Rash) Social History Alcohol - Denies Alcohol Use, 12/07/2012 Employment/School Employed, Work/School description: [employer] Activity level: Desk/Office. Highest education level: High school., 11/22/2019 Exercise - Does not exercise, 12/07/2012 Home/Environment Lives with Children, Spouse. Living situation: Home/Independent. Alcohol abuse in household: No. Substance abuse in household: No. Smoker in household: Yes. Injuries/Abuse/Neglect in household: No. Feels unsafe at home: No. Safe place to go: Yes. Agency(s)/Others notified: No. Family/Friends available for support: Yes. Concern for family members at home: No. Major illness in household: No. Financial concerns: No., 11/22/2019 Lives with Children, Spouse., 11/22/2019 Nutrition/Health Regular, 12/07/2012 Sexual Sexually active: Yes. Number of current partners 1., 12/07/2012 Substance Abuse - Denies Substance Abuse, 12/07/2012 Tobacco - High Risk, 12/07/2012 5-9 cigarettes (between 1/4 to 1/2 pack)/day in last 30 days Tobacco Use:. Current vaping or e-cigarette use Smokeless Tobacco Use:. Cigarettes, 1 per day. 8 year(s). Total pack years: 8. Started age 18.0 Years. Ready to change: Yes. Yes, 09/28/2020 Current, Cigarettes, 1 per day., 12/07/2012 Family History Family history is negative Normal [facility] Comment on above: Result Comment: Elec tronically Signed By: David OLSON\.br\Date and Time Signed: 09/28/20 09:33 EDT Patient Educationon 09-29-19 Patient Education Immunology Allergic Rhinitis, Adult Allergic rhinitis is an allergic reaction that affects the mucous membrane inside the nose. It causes sneezing, a runny or stuffy nose, and the feeling of mucus going down the back of the throat (postnasal drip). Allergic rhinitis can be mild to severe. There are two types of allergic rhinitis: ? Seasonal. This type is also called hay fever. It happens only during certain seasons. ? Perennial. This type can happen at any time of the year. What are the causes? This condition happens when the body's defense system (immune system) responds to certain harmless substances called allergens as though they were germs. Seasonal allergic rhinitis is triggered by pollen, which can come from grasses, trees, and weeds. Perennial allergic rhinitis may be caused by: ? House dust mites. ? Pet dander. ? Mold spores. What are the signs or symptoms? Symptoms of this condition include: ? Sneezing. ? Runny or stuffy nose (nasal congestion). ? Postnasal drip. ? Itchy nose. ? Tearing of the eyes. ? Trouble sleeping. ? Daytime sleepiness. How is this diagnosed? This condition may be diagnosed based on: ? Your medical history. ? A physical exam. ? Tests to check for related conditions, such as: ? Asthma. ? [place] eye. ? Ear infection. ? Upper respiratory infection. ? Tests to find out which allergens trigger your symptoms. These may include skin or blood tests. How is this treated? There is no cure for this condition, but treatment can help control symptoms. Treatment may include: ? Taking medicines that block allergy symptoms, such as antihistamines. Medicine may be given as a shot, nasal spray, or pill. ? Avoiding the allergen. ? Desensitization. This treatment involves getting ongoing shots until your body becomes less sensitive to the allergen. This treatment may be done if other treatments do not help. ? If taking medicine and avoiding the allergen does not work, new, stronger medicines may be prescribed. Follow these instructions at home: ? Find out what you are allergic to. Common allergens include smoke, dust, and pollen. ? Avoid the things you are allergic to. These are some things you can do to help avoid allergens: ? Replace carpet with wood, tile, or vinyl ruma. Carpet can trap dander and dust. ? Do not smoke. Do not allow smoking in your home. ? Change your heating and air conditioning filter at least once a month. ? During allergy season: ? Keep windows closed as much as possible. ? Plan outdoor activities when pollen counts are lowest. This is usually during the evening hours. ? When coming indoors, change clothing and shower before sitting on furniture or bedding. ? Take acyw-pon-sjlatfd and prescription medicines only as told by your health care provider. ? Keep all follow-up visits as told by your health care provider. This is important. Contact a health care provider if: ? You have a fever. ? You develop a persistent cough. ? You make whistling sounds when you breathe (you wheeze). ? Your symptoms interfere with your normal daily activities. Get help right away if: ? You have shortness of breath. Summary ? This condition can be managed by taking medicines as directed and avoiding allergens. ? Contact your health care provider if you develop a persistent cough or fever. ? During allergy season, keep windows closed as much as possible. This information is not intended to replace advice given to you by your health care provider. Make sure you discuss any questions you have with your health care provider. Document Released: 02/21/2002 Document Revised: 05/11/2018 Document Reviewed: 07/06/2017 [employer] Patient Education ? 2019 [employer]. [facility] Encounters Encounter Date Encounter Type Care Provider Facility Start: 01-22-2024 End: 01-22-2024 Emergency department patient visit PHYSICIAN ST[facility] Start: 07-12-2023 End: 07-12-2023 ambulatory DIXON LARSEN Not Available Start: 04-07-2023 End: 04-08-2023 Emergency department patient visit DAVID MURRAY [facility] Start: 07-26-2022 End: 07-27-[address] LUCY HARTLEY Facility:[facility] Start: 07-11-2022 End: 07-11-[address] DOCTOR DIAZ Facility:[facility] Payers Date Payer Category Payer Medicaid [id number] 2022 Private Health Insurance [id number] 1993 Unknown [id number] 2.16.84 [id number] 1993 Unknown [id number] 2.16.84 [id number] 1993 Unknown [id number] 2.16.84 [id number] 1993 Unknown [id number] 2.16. [id number] 1993 Unknown [id number] 2.16. [id number] 1959 Unknown [id number] Summary Purpose Family History No Family History Records FoundNo Family History Records FoundNo Family History Records FoundNo Family History Records Found Advance Directives No Advanced Directives Records FoundNo Advanced Directives Records FoundNo Advanced Directives Records FoundNo Advanced Directives Records Found Additional Source Comments INFORMATION SOURCE (unrecogn ized section and content) DATE CREATED AUTHOR 08/09/2021 [facility] DATE CREATED AUTHOR AUTHOR'S ORGANIZ ATION 07/31/2022 [facility] DATE CREATED AUTHOR AUTHOR'S ORGANIZ ATION 07/14/2023 [facility] EPIC DATE CREATED AUTHOR AUTHOR'S ORGANIZ ATION 02/23/2024 [facility] FOR RECORDS PERTAINING TO PATIENTS WHO ARE OR HAVE BEEN ENROLLED IN A CHEMICAL DEPENDENCY/SUBSTANCEABUSE PROGRAM, SOME INFORMATION MAY BE OMITTED. This clinical summary was aggregated from multiple sources. Caution should be exercised in using it in the provision of clinical care. This summary normalizes information from multiple sources, and as a consequence, information in this document may materially change the coding, format and clinical context of patient data. In addition, data may be omitted in some cases. CLINICAL DECISIONS SHOULD BE BASED ON THE PRIMARY CLINICAL RECORDS. [facility] provides no warranty or guarantee of the accuracy or completeness of information in this document.
== END 2024-07-22 21:40 | disposition home or self-care (01) ==
LOC: LAB 21:39
PROVIDERS: Visit Provider Obstetrics & Gynecology
DX: Z01.419 Encounter for gynecological examination (general) (routine) without abnormal findings (principal)
CPT/HCPCS: 87624; 88175